=== PATIENT | male | born 1995 | race Caucasian/White ===

== ENCOUNTER 2017-06-01 20:00 | Emergency (ER) | payer MEDICAID ==
[~2017-06-01] VITALS: Ht 177.8 cm; Wt 93.9 kg
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
--- NOTE | 2017-06-01 20:50 | NUR ---
DR ALVAREZ AT BEDSIDE FOR EVAL.
[2017-06-01] MEDS ORDERED: IBUPROFEN 400 MG TABLET ONE (20:58)
[2017-06-01] MEDS ORDERED: IBUPROFEN 400 MG TABLET PO ONE (21:00)
--- NOTE | 2017-06-01 21:40 | NUR ---
Patient discharged to home in stable condition. Written and verbal after care instructions given. Patient verbalizes understanding of instruction. Patient is ambulatory with steady gait, no further complaints.
[2017-06-01 22:01] VITALS: BP 128/69
== END 2017-06-01 22:02 | disposition home or self-care (01) ==
LOC: ER 20:02
DX: S29.012A Strain of muscle and tendon of back wall of thorax, initial encounter (principal); V29.50XA Motorcycle passenger injured in collision with unspecified motor vehicles in traffic accident, initial encounter; Y93.89 Activity, other specified; Y92.89 Other specified places as the place of occurrence of the external cause; Y99.9 Unspecified external cause status
CPT/HCPCS: A4606; Z7610

== ENCOUNTER 2019-07-29 17:32 | Emergency (ER) | payer SELFPAY ==
[~2019-07-29] VITALS: Ht 188 cm; Wt 104.3 kg
[2019-07-29] MEDS ORDERED: IBUPROFEN 600 MG TABLET PO ONE ×2 (17:59→18:00)
[2019-07-29 19:12] VITALS: BP 138/84
== END 2019-07-29 19:20 | disposition home or self-care (01) ==
LOC: ER 17:32
DX: S93.691A Other sprain of right foot, initial encounter (principal); W01.0XXA Fall on same level from slipping, tripping and stumbling without subsequent striking against object, initial encounter; Y93.89 Activity, other specified; Y92.89 Other specified places as the place of occurrence of the external cause; Y99.8 Other external cause status
CPT/HCPCS: 73630-TC